=== PATIENT | male | born 2000 | race Caucasian/White ===

== ENCOUNTER 2019-12-25 15:00 | Outpatient (RCR) | payer BC, SELFPAY ==
[2019-11-07 09:24] VITALS: BMI 34.8
== END 2020-01-21 11:49 | disposition home or self-care (01) ==
LOC: ANHDMC 15:00
PROVIDERS: PCP Family Medicine; Visit Provider Family Medicine
DX: E66.9 Obesity, unspecified (principal); R63.5 Abnormal weight gain; Z71.3 Dietary counseling and surveillance
CPT/HCPCS: 97802

== ENCOUNTER 2025-02-12 18:11 | Emergency (ER) | payer SELFPAY ==
--- NOTE | ~2025-02-12 | US_ITS ---
US scrotum doppler INDICATION:Scrotal pain. COMPARISON:None. FINDINGS: Sonographic evaluation of the scrotum was performed. The right testicle measures 4.7 x 2.3 x 2.9 cm and the left measures 4.2 x 2.1 x 3 cm. The testicular echogenicity is homogeneous. No masses are detected. There is no hydrocele or varicocele. Enlarged right epididymis is noted. There is increased vascular flow in the right epididymis. Scrotal DOPPLER of the testicles was performed. There are normal arterial waveforms bilaterally. IMPRESSION: Normal scrotal/testicular ultrasound. No evidence for testicular torsion. Enlarged hyperemic right epididymis may represent epididymitis. Reviewed, dictated and finalized at location [facility] [employer]
[2025-02-12 18:12] VITALS: BP 162/105; PULSE 74; RESP 16; TEMP 36.3; O2SAT 98
[2025-02-12 19:56] LABS: Add Urine Microscopic? NO; Appearance Urine Clear (Clear); Glucose Urine UA Negative (Negative); Leukocyte Esterase Ur Negative LEU/UL (Negative); Nitrate Urine Negative (Negative); Specific Grav Ur 1.023 (1.001-1.035)
--- NOTE | 2025-02-12 20:03 | ED.MALEGU ---
HPI - Male Genitourinary General Chief complaint: Urogenital-Male Stated complaint: SCROTAL PAIN Time Seen by Provider: 02/12/25 19:28 History of Present Illness HPI Narrative: 24-year-old male with prior history of a cecectomy 3 years ago and prior STD exposure presenting to the emergency department today with scrotal swelling. Patient states he was having a normal day at work today and then started having some discomfort in his left testicle in bilateral scrotal region. States he had some swelling that mostly resolved on the right side and still present on the left side. He had a episode of blood-tinged urine earlier today but denies any pain with this. States that he Google his symptoms and was concerned and came to the ER. Denies any systemic symptoms such as fever, chills, nausea, vomiting, body aches. Was otherwise in his normal state of health. Denies any traumatic injuries. States that he has been monogamous for 7 months but previously did potentially have exposure to gonorrhea. Denies any skin lesions or skin breakdown. No penile pain or urethral pain or tenderness but he has some tenderness with palpation of his left testicle. No previous surgeries aside from the vasectomy. Related Data Allergies Allergy/AdvReac Type Severity Reaction Status Date / Time prednisone AdvReac Unknown swelling Verified 03/07/23 14:58 Review of Systems Review of Systems: as reviewed above in HPI All systems reviewed & are unremarkable except as noted in HPI and below PMFSH Past Medical History Medical History Exposure to sexually transmitted disease (STD) Major depressive disorder, single episode, moderate degree Witnessed episode of apnea Snoring BMI 35.0-35.9,adult BMI 30.0-30.9,adult Mild intermittent asthma in adult without complication BMI 32.0-32.9,adult Carpal tunnel syndrome of right wrist Obesity (BMI 35.0-39.9 without comorbidity) Mixed hyperlipidemia Hypersomnia Seasonal allergic rhinitis Obesity (BMI 30-39.9) Elevated liver enzymes Encounter for wellness examination in adult Chronic pain in left foot Weight gain Acne cystica Asthma Scoliosis Family History Family History Mother Bipolar depression Grandparent Epilepsy Grandparent Epilepsy COPD (chronic obstructive pulmonary disease) Grandparent Bladder cancer Social History Social History Smoking status: Never smoker Alcohol intake: current Alcohol use details: beer once a month Substance use: never Substance use type: does not use Spiritual care concerns: No Exam Narrative: GENERAL: [Well-appearing, well-nourished, and in no acute distress.] HEAD: [Normocephalic, atraumatic.] EYES: [PERRLA and EOMI.] ENT: Nares clear, no rhinorrhea or epistaxis. Mucous membranes moist. NECK: Supple. CHEST: [Clear to auscultation. No respiratory distress.] HEART: [Regular rate and rhythm]. No murmur heard. [Normal peripheral pulses.] ABDOMEN: [Soft, nondistended], [nontender], [No rigidity or guarding] : No palpable inguinal masses, testicles are bilaterally descended, tenderness to palpation over the left posterior aspect of the left testicle near the epididymis but no testicular enlargement. No scrotal erythema or cellulitis. No penile pain or discharge. No rashes or lesions evident. Positive cremasteric reflex bilaterally. EXTREMITIES: Normal range of motion. [No edema.] SKIN: Warm, dry, no rash. NEURO: [No focal deficits]. Alert and oriented [x3.] PSYCH: [Normal mood and affect.] Course Vital Signs Vital signs: Vital Signs Temperature 36.3 C L 02/12/25 18:12 Pulse Rate 74 02/12/25 18:12 Respiratory Rate 16 02/12/25 18:12 Blood Pressure 162/105 H 02/12/25 18:12 Pulse Oximetry 98 02/12/25 18:12 Temperature 36.6 C 02/12/25 21:55 Pulse Rate 65 02/12/25 21:55 Respiratory Rate 18 02/12/25 21:55 Blood Pressure 135/74 02/12/25 21:55 Pulse Oximetry 95 02/12/25 21:55 MDM MDM Narrative Medical decision making narrative: 24-year-old male with prior history of a cecectomy 3 years ago and prior STD exposure presenting to the emergency department today with scrotal swelling. Patient states he was having a normal day at work today and then started having some discomfort in his left testicle in bilateral scrotal region. States he had some swelling that mostly resolved on the right side and still present on the left side. He had a episode of blood-tinged urine earlier today but denies any pain with this. States that he Google his symptoms and was concerned and came to the ER. Denies any systemic symptoms such as fever, chills, nausea, vomiting, body aches. Was otherwise in his normal state of health. Denies any traumatic injuries. States that he has been monogamous for 7 months but previously did potentially have exposure to gonorrhea. Denies any skin lesions or skin breakdown. No penile pain or urethral pain or tenderness but he has some tenderness with palpation of his left testicle. No previous surgeries aside from the vasectomy. No palpable inguinal masses, testicles are bilaterally descended, tenderness to palpation over the left posterior aspect of the left testicle near the epididymis but no testicular enlargement. No scrotal erythema or cellulitis. No penile pain or discharge. No rashes or lesions evident. Positive cremasteric reflex bilaterally. Patient is afebrile and aside from some minor hypertension has normal vital signs. Suspect epididymitis, appendix testis torsion, orchitis, testicular torsion less likely given exam, potential for STI or urinary infection. urine studies and ultrasound obtained. Patient is comfortable at this time not requiring any pain medications per discussion. Discussed treatment options going forward based on differential in plan of care for Urology follow-up assuming no emergent concerns. urine testing shows no evidence of infection. No leukocyte esterase, negative nitrites. No blood. Gonorrhea, chlamydia, Trichomonas tests are negative. Ultrasound reveals no evidence of testicular torsion and normal scrotal testicular ultrasound impression. Some enlarged hyperemic epididymis might represent epididymitis. Given that patient has pain and tenderness along his epididymis on examination we will treat this with anti-inflammatories as there are no infection concerns at this time. Was prescribed Toradol and Tylenol and referred back to Urology. Discussed return precautions including infection symptoms. Differential Diagnosis Differential Diagnosis: Suspect epididymitis, appendix testis torsion, orchitis, testicular torsion less likely given exam, potential for STI or urinary infection. Lab Data MDM Lab Attestation statement: I personally reviewed the patient's lab results. Labs: Lab Results 02/12/25 Range/Units 19:42 Urine Color Yellow (Yellow) Urine Appearance Clear (Clear) Urine pH 5.5 (5.0-9.0) Ur Specific [place] 1.023 (1.001-1.035) Urine Protein Negative (Negative) mg/dL Urine Glucose (UA) Negative (Negative) mg/dL Urine Ketones Negative (Negative) mg/dL Ur Blood (Man) Negative (Negative) Urine Nitrate Negative (Negative) Urine Bilirubin Negative (Negative) Urine Urobilinogen 0.2 (<2.0) mg/dL Leukocyte Esterase Rfl Negative (Negative) OSWALDO/UL C. trachomatis (PCR) Not detected (NOT DETECTE) N. gonorrhoeae (PCR) Not detected (NOT DETECTE) T. vaginalis (PCR) Not detected (NOT DETECTE) Imaging Data Attestation: I personally reviewed and interpreted this imaging study as follows: My impression: Impressions Scrotum Ultrasound 02/12/25 20:43 IMPRESSION: Normal scrotal/testicular ultrasound. No evidence for testicular torsion. Enlarged hyperemic right epididymis may represent epididymitis. Radiologist's impression: ITS Impressions Scrotum Ultrasound 02/12/25 20:43 IMPRESSION: Normal scrotal/testicular ultrasound. No evidence for testicular torsion. Enlarged hyperemic right epididymis may represent epididymitis. Discharge Plan Discharge Clinical Impression: Testicle pain, Epididymal pain Patient Disposition: Home Condition: Stable Instructions: Antibiotic Form, Epididymitis (ED), Testicle Pain (ED), Scrotal Pain (ED) Additional Instructions: Ultrasound shows no emergent concerns. Normal scrotal and testicular ultrasound with no evidence of torsion. There is some increased blood flow to the epididymis consistent with the location of your pain but no signs of infection on the urine or any of the STI/STD panel testing. We will treat this with high strength anti-inflammatories. Typically if infections were found this would require antibiotics but not the case today, but we want you to follow-up with Urology for re-evaluation and to see if it improves with conservative therapies. Return with any emergent concerns, purulent discharge, fevers, back pain, worsening pain or any other issues. Patient Language: Citizen Of [place] Prescriptions: New acetaminophen [Tylenol Extra Strength] 500 mg tablet 1,000 mg PO TID PRN (Reason: pain) Qty: 30 0RF ketorolac 10 mg tablet 10 mg PO Q8H PRN (Reason: pain) 5 Days Qty: 20 0RF Rx Instructions: maximum total duration of 5 days from all oral, intranasal, or parenteral formulations No Action escitalopram oxalate [Lexapro] 20 mg tablet 20 mg PO DAILY Qty: 90 3RF Follow-up/Referrals: Elroy Arias MD [Physician, Urology] - 1 Week Referral Note: Possible epididymitis Kj Cochran MD [Physician, Family Practice] Stand Alone Forms: Work/School Release IP Time of Disposition: 21:52
[2025-02-12 21:01] LABS: Trichomonas Vag PCR NOT DETECTED (NOT DETECTE)
[2025-02-12 21:55] VITALS: BP 135/74; PULSE 65; RESP 18; TEMP 36.6; O2SAT 95
== END 2025-02-12 21:56 | disposition home or self-care (01) ==
PROVIDERS: Emergency Provider Student in an Organized Health Care Education/Training Program
DX: N50.812 Left testicular pain (principal); J45.20 Mild intermittent asthma, uncomplicated; E78.2 Mixed hyperlipidemia; E66.9 Obesity, unspecified; Z68.31 Body mass index [BMI] 31.0-31.9, adult; F32.1 Major depressive disorder, single episode, moderate; Z79.899 Other long term (current) drug therapy
CPT/HCPCS: 76870; 81003; 87491; 87591; 87661; 93976; 99284